=== PATIENT | female | born 1980 | race Caucasian/White ===

== ENCOUNTER 2022-04-10 12:52 | Outpatient (CLI) | payer OTHER, SELFPAY ==
[2022-04-10 13:35] LABS: Alanine Aminotransferase 16 U/L (6-35); Albumin Level 4.1 g/dL (3.5-5.1); Alkaline Phosphatase 72 U/L (38-126); Amylase 58 U/L (30-110); Aspartate Amino Transferase 20 U/L (14-36); Bilirubin,Total 0.2 mg/dL (0.2-1.3); Lipase 94 U/L (23-300)
== END 2022-04-10 12:53 | disposition home or self-care (01) ==
LOC: ANHSURGERY 12:56
PROVIDERS: PCP Internal Medicine Gastroenterology; Visit Provider Surgery
DX: Z01.818 Encounter for other preprocedural examination (principal); K80.20 Calculus of gallbladder without cholecystitis without obstruction
CPT/HCPCS: 36415; 80076; 82150; 83690; 86850; 86900; 86901

== ENCOUNTER 2022-04-13 00:03 | Day surgery (SDC) | payer OTHER, SELFPAY ==
[2022-04-09 15:10] VITALS: BMI 38.3
--- NOTE | 2022-04-09 15:19 | PC.NURSE ---
Report to the Outpatient Waiting Room, entrance under the green pavilion located off [facility], at time _1130_ on date _04-13-2022_. OR Time: __130pm_. - You and your visitor will be asked to self-screen and do not enter if you have any COVID symptoms. - Only one visitor and NO children visitors are allowed at this time. - The patient visitor is requested to leave or wait in car when not with patient due to restrictions. - A mask is required within the hospital. Patients may have clear liquids (water, carbonated beverages, clear teas, apple juice) until 3 hours prior to surgery with a maximum of 20 ounces. - No food from midnight until time of surgery Take the following medications with a SIP of water the morning of surgery: __Escitalopram Medications to discontinue per physician ___Fish oil Date to take last upaw__[id number] Please no make-up, nail kenyan, hairspray, perfume, deodorant, or body powder the day of surgery. No jewelry (including any body piercings) or valuables the day of surgery, leave them at home. Please take a shower or bath the night before, or the morning of, surgery with an antibacterial soap. Wear comfortable, loose fitting clothing. - Jewelry must be removed prior to entering the operating room. Rings and piercings that are not removed may be cut off. - The hospital will not accept responsibility for valuables. - Please leave all valuables, including medications, at home the day of surgery. If you are going home after surgery, a licensed street flusher driver must drive you home. - NO public transportation without another adult. - We recommend that an adult stay with you for 24 hours following discharge. - We also recommend that you do not drive, make important decision, drink alcoholic beverages, or take any drugs that were not prescribed by your health care provider for at least 24 hours after your discharge time. Follow any additional instructions given to you from your surgeon. If you or anyone in your household have experienced Covid symptoms in the past week, please notify your surgeon or the nurse liaison at the phone number below for possible testing. Telephone instructions given to __Patient___and asked if any additional questions and then verbalized understanding. Patient advised to call surgeon office or pre surgery nurse liaison [phone] if any additional questions.
[2022-04-13] VITALS (10 sets, daily range): BP systolic 107–135; BP diastolic 64–78; PULSE 61–93; RESP 12–18; TEMP 36.4–36.8; O2SAT 90–100
--- NOTE | 2022-04-13 10:48 | WPDHPUPDATE1 ---
History and Physical Update Update Date/Time: 04/13/22 10:48 History and Physical has been reviewed, including an updated exam of the patient. There are NO changes in the patient's condition. I have changed the procedure consent to Laparoscopic cholecystectomy, da Everton assisted, possible open. Otherwise assessment and plan unchanged. Risks, benefits, and alternatives have been discussed and questions answered. Patient agrees to proceed with procedure.
[2022-04-13] MEDS: LACTATED RINGERS 1,000 ML 30 ML IV CONT ×2 (11:30→13:57)
[2022-04-13] MEDS: KETOROLAC 15 MG/ML VIAL (*BKC) IV PUSH (11:30)
[2022-04-13] MEDS: ACETAMINOPHEN 500 MG TABLET 1000 MG PO (11:30)
--- NOTE | 2022-04-13 11:50 | SUR.PREOP ---
SPY AGENT GREEN (INDOCYANINE GREEN) 1.5 ML OF MIXED SOLUTION WAS GIVEN AT 1130 04/[address] WILCOX.
--- NOTE | 2022-04-13 12:12 | WPDANESEPPF ---
Anes - Initial Pre Proc Eval Procedure: Operation Date: 04/13/22 12:30 Proposed Procedures p Laparoscopic Cholecystectomy, Davinci Assisted - Cholo Chin DO Date/Time: 04/13/22 12:12 Surgeon: Cholo Chin DO Pre Op Diagnosis: symptomatic cholelithiasis Patient Data Age: 41 Gender: F Height: 1.65 m Weight: 106.5 kg Last Vital Signs Temp 36.8 C 04/13/22 11:46 Pulse 61 04/13/22 11:46 Resp 14 04/13/22 11:46 BP 117/73 04/13/22 11:46 Pulse Ox 100 04/13/22 11:46 O2 Del Method Room Air 04/13/22 11:46 Allergies Allergy/AdvReac Type Severity Reaction Status Date / Time No Known Allergies Allergy Verified 04/09/22 15:08 Home Medications Medication Instructions Recorded Confirmed Type cetirizine 10 mg tablet (Zyrtec) 10 mg PO DAILY 03/17/22 04/09/22 History escitalopram oxalate 10 mg tablet 10 mg PO DAILY 03/17/22 04/09/22 History (Lexapro) mecobalamin (vitamin B12) 1,000 1,000 mcg sublingual DAILY 03/17/22 04/09/22 History mcg disintegrating tablet,sublingual omega 6-zxw-hlz-fish oil 100 1 cap PO DAILY 03/17/22 04/09/22 History mg-160 mg-1,000 mg capsule (Fish Oil) omeprazole 20 mg capsule,delayed 20 mg PO DAILY 03/17/22 04/09/22 History release Patient hx anesthesia problems: none Family hx anesthesia problems: none Results Review: All pre-operative results and documents have been reviewed as part of the pre-operative evaluation. [facility] Past Medical History Medical History Helicobacter pylori (H. 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 Gender identity (if verbalized by the patient): Female Sexual Orientation (if Verbalized by the Patient): Straight or Heterosexual Spiritual care concerns: No Anes - Eval Final PreProcedure Day of Procedure 04/13/22 12:12 Patient weight: obese Heart: regular rate and rhythm Lungs: clear to auscultation and normal air movement Airway: Mallampati scale class II Neurological: alert and oriented Last oral intake: >/= 8 hours ASA classification: II Emergent: no Anesthetic plan: proceed Anesthesia type and monitoring: general ETT Results Review: All pre-operative results and documents have been reviewed as part of the pre-operative evaluation. Informed Consent: The patient's anesthetic plan and its attendant risks and benefits were discussed with the patient/family/POA. Questions were solicited and answers provided to the satisfaction of the patient/family/POA.
[2022-04-13] MEDS: ceFAZolin 2 GM/D5W 50 ML 2 GM/50 ML BAG IVPB (12:29)
--- NOTE | 2022-04-13 13:53 | W.PM.PROC2 ---
Procedure Note - Detailed Date of Procedure 04/13/22 Pre-op Diagnosis symptomatic cholelithiasis Post-op Diagnosis Same Procedure Performed Laparoscopic cholecystectomy, da Everton assisted Surgeon Cholo Chin, DO Anesthesia General and Local (0.5% bupivacaine) Indications This is a 41-year-old woman who presented with right upper quadrant pains intermittently over the last 4 months. She had a gallbladder ultrasound which showed evidence of cholelithiasis. Discussions were made with the patient about treatment options and decision was made to proceed with robotic assisted laparoscopic cholecystectomy, possible open. Findings Laparoscopic cholecystectomy was performed. The gallbladder was slightly dilated and contained multiple stones. The cystic duct appeared normal in size. No other intra-abdominal abnormalities were noted. The gallbladder was removed and sent to the lab for pathology. Description of Procedure Procedure as well as risks, benefits, and alternatives were discussed with the patient. Written consent was obtained and placed in chart prior to procedure. 1.5 mL of indocyanine green was given intravenously in preop. Patient was brought back to surgical suite. She was placed supine on operating table. Time-out was done to confirm patient and procedure. She was then intubated by the anesthesia department. Her abdomen was then prepped and draped in sterile fashion using chlorhexidine prep. 0.5% bupivacaine was infiltrated locally at the site of each port placement. An 8 mm incision was made just superior to the umbilicus and a 5 mm Optiview trocar was then advanced through the abdominal layers under direct visualization. Once inside the abdominal cavity, carbon dioxide insufflation was used to create a pneumoperitoneum. The camera was inserted and the abdomen was inspected. No mediated abnormalities were noted. The patient was placed in 10? reverse Trendelenburg position and rotated 10? to the left. Two 8 mm incisions were made in the right lateral abdomen and 2 8 mm trocars were inserted under direct visualization. A 12 mm incision was made in the left lateral abdomen and a 12 mm trocar was inserted under direct visualization. The 5 mm Optiview trocar was then removed and another 8 mm trocar was inserted in its place. The robotic arms were then brought up to the patient's bedside and secured to each port. The camera and instruments were inserted. I then moved over to the robotic consult to take control of the camera and instruments. The gallbladder was grasped at the fundus and retracted cephalad. The infundibulum of the gallbladder was then grasped and retracted laterally. Hook electrocautery was then used to carefully dissect around the neck of the gallbladder. The cystic duct was identified and a window was created around it using hook electrocautery. The cystic artery was also identified and a window was created behind it using hook electrocautery. Critical view of safety was identified visualizing the cystic duct running directly into the neck of the gallbladder and the cystic artery running directly into the wall the gallbladder. The camera view was switched to firefly mode and the indocyanine green within the gallbladder and cystic duct was clearly visualized. No other structures were noted running into this region and there did not appear to be any obstruction of the cystic duct impeding flow of bile into the gallbladder. The camera mode was switched back to regular mode. Hemo lock clips were placed on both the cystic duct and cystic artery. Two clips were placed proximally and 1 distally. Hook electrocautery was then used to transect in between the clips. Once safely away from the marisela hepatus, hook electrocautery was used to dissect the gallbladder off of the liver bed. Once the gallbladder was completely dissected free it was then placed in an Endo-Catch bag and removed through the 12 mm port site. The liver bed
[2022-04-13] MEDS: fentaNYL CITRATE INJ (*CRX) 100 MCG/2 ML VIAL 25 MCG IV PUSH (14:29)
[2022-04-13] MEDS: oxyCODONE HCL (*CRX) 5 MG TAB IR PO (15:28)
== END 2022-04-13 16:15 | disposition home or self-care (01) ==
PROVIDERS: PCP Internal Medicine Gastroenterology; Visit Provider Surgery
PROC: 0FT44ZZ Resection of Gallbladder, Percutaneous Endoscopic Approach (ICD-10-PCS; CPT 47562; principal; 2022-04-13 12:30)
DX: K80.10 Calculus of gallbladder with chronic cholecystitis without obstruction (principal); R11.2 Nausea with vomiting, unspecified; K59.00 Constipation, unspecified; R19.7 Diarrhea, unspecified; R10.9 Unspecified abdominal pain; K58.9 Irritable bowel syndrome, unspecified; E66.9 Obesity, unspecified; Z68.39 Body mass index [BMI] 39.0-39.9, adult
CPT/HCPCS: 47562; S2900; 36415; 80076; 82150; 83690; 86850; 86900; 86901; 88304; A9270; J0690; J1100; J1170; J1885; J2250; J2405; J2704; J2710; J3010; J7030; J7120

== ENCOUNTER → 2023-02-01 10:35 | Outpatient (CLI) | payer OTHER, SELFPAY ==
--- NOTE | ~2023-02-01 | US_ITS ---
EXAMINATION: US pelvic complete DATE: 02/01/2023 10:54 INDICATION: Menorrhagia Comparison:No prior studies for comparison. TECHNIQUE: Multiple transabdominal and endovaginal sonographic images of the pelvis performed. FINDINGS: The uterus measures 10 x 4.3 x 4.6 cm. The endometrial complex measures 9 mm. The right ovary measures 3.2 x 1.4 x 1.8 cm and the left ovary measures 2.2 x 1.4 x 1.9 cm. There ar e small follicles in each ovary. Normal doppler signal in both ovaries. There is no free fluid in the pelvis. There are no abnormal masses seen on either side. IMPRESSION: 1. Unremarkable pelvic ultrasound. Reviewed, dictated and finalized at location []
== END ==
PROVIDERS: PCP Internal Medicine Gastroenterology; Visit Provider Nurse Practitioner
DX: N92.0 Excessive and frequent menstruation with regular cycle (principal)
CPT/HCPCS: 76856

== ENCOUNTER 2023-03-01 02:27 | Day surgery (SDC) | payer OTHER, SELFPAY ==
[2023-02-18 14:15] VITALS: BMI 38.2
--- NOTE | 2023-02-18 14:20 | PC.NURSE ---
Report to the Outpatient Waiting Room, entrance under the green pavilion located off [facility], at time 0630 on date 03/01/23. Planned Procedure Time: 0830. Time changes happen often and if your time is changed the preop area will call you the afternoon before. - You and your visitor will be asked to self-screen and do not enter if you have any COVID symptoms. - A mask is optional within the hospital at this time. Patients may have clear liquids (water, carbonated beverages, clear teas, apple juice) until 3 hours prior to surgery with a maximum of 20 ounces. - No food from midnight until time of surgery Take the following medications with a SIP of water the morning of surgery: LEXAPRO DO NOT STOP ANY OF YOUR OTHER PRESCRIPTION MEDICATIONS PRIOR TO SURGERY ?EXCEPT THE FOLLOWING Medications to discontinue per physician: VITAMINS Date to take last dose: 02/25/23 Please no make-up, nail palestinian, hairspray, perfume, deodorant, or body powder the day of surgery. No jewelry (including any body piercings) or valuables the day of surgery, leave them at home. Please take a shower or bath the night before, or the morning of, surgery with an antibacterial soap. Wear comfortable, loose fitting clothing. - Jewelry must be removed prior to entering the operating room. Rings and piercings that are not removed may be cut off. - The hospital will not accept responsibility for valuables. - Please leave all valuables, including medications, at home the day of surgery. If you are going home after surgery, a licensed light truck driver must drive you home. - NO public transportation without another adult if you receive anesthesia. - We recommend that an adult stay with you for 24 hours following discharge. - We also recommend that you do not drive, make important decision, drink alcoholic beverages, or take any drugs that were not prescribed by your health care provider for at least 24 hours after your discharge time. Follow any additional instructions given to you from your surgeon. If you or anyone in your household have experienced Covid symptoms in the past week, please notify your surgeon or the nurse liaison at the phone number below for possible testing. Telephone instructions given to PT Jg ELENA and asked if any additional questions and then verbalized understanding. Patient advised to call surgeon office or pre surgery nurse liaison [phone] if any additional questions.
[2023-03-01 06:30] VITALS: BP 158/91; PULSE 76; RESP 16; TEMP 36.6; O2SAT 100
[2023-03-01] MEDS: ACETAMINOPHEN 500 MG TABLET 1000 MG PO (07:16)
--- NOTE | 2023-03-01 07:29 | WPDHPUPDATE1 ---
History and Physical Update Update Date/Time: 03/01/23 07:29 History and Physical has been reviewed, including an updated exam of the patient. There are NO changes in the patient's condition. Risks, benefits, and alternatives have been discussed and questions answered. Patient agrees to proceed with procedure.
--- NOTE | 2023-03-01 07:29 | PM.HPGS ---
History of Present Illness History of Present Illness Consent: Risks, benefits, and alternatives have been discussed and questions answered. Patient agrees to proceed with procedure. Chief complaint: menorrhagia Narrative: Vandana Almanza is a 42 year old female with heavy cycles resulting in anemia and a hemoglobin of 7. During her cycle she changes a super plus tampon every 2hours for 3 days with very large clots. She bleeds through her bed clothes at night during those days many times. Patient had an emergency room visit in November secondary to syncope. She had a colonoscopy which was normal. Her hemoglobin is up to 10.6 and pelvic ultrasound is normal. It was recommended to proceed with D&C hysteroscopy to further evaluate the endometrium. Risks of infection, bleeding, perforation, and possible pathology are discussed. Patient voices understanding and agrees to proceed. Review of Systems Constitutional: Constitutional: Reports night sweats PMFSH Past Medical History Medical History (Updated 03/01/23 @ 07:35 by Naya Sanz MD) Anxiety Helicobacter pylori (H. pylori) IBS (irritable bowel syndrome) Migraine (normal spontaneous vaginal delivery) Surgical History Surgical History (Updated 03/01/23 @ 07:34 by Naya Sanz MD) H/O gastric sleeve 2015 H/O: 2009 History of bilateral tubal ligation 2011 Hx of appendectomy open 1997 Family History Family History Father Malignant lymphoma, plasmacytoid Hypertension High cholesterol Social History Social History Social History: caffeine use- 1 cup of coffee per week Smoking status: Never smoker Alcohol intake: never Substance use: never Substance use type: does not use Living arrangements: with family Occupation/Education: occupation 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 Gender identity (if verbalized by the patient): Female Sexual Orientation (if Verbalized by the Patient): Straight or Heterosexual Spiritual care concerns: No Meds Home Medications and Allergies Home Medications Medication Instructions Recorded Confirmed Type cetirizine 10 mg tablet (Zyrtec) 10 mg PO DAILY 03/17/22 02/18/23 History escitalopram oxalate 10 mg tablet 10 mg PO DAILY 03/17/22 02/18/23 History (Lexapro) mecobalamin (vitamin B12) 1,000 1,000 mcg sublingual DAILY 03/17/22 03/01/23 History mcg disintegrating tablet,sublingual omeprazole 20 mg capsule,delayed 20 mg PO DAILY 03/17/22 02/18/23 History release ferrous sulfate 325 mg (65 mg 325 mg PO BID 02/18/23 03/01/23 History iron) tablet (Iron (ferrous sulfate)) Allergies Allergy/AdvReac Type Severity Reaction Status Date / Time No Known Allergies Allergy Verified 03/01/23 07:23 Exam Const: General: healthy appearing and alert Orientation/consciousness: patient oriented x3 Resp: Effort & Inspection: normal respiratory effort Auscultation: clear to auscultation bilaterally Cardio: Rate: regular rate Rhythm: regular rhythm GI: GI Palp: Yes Soft to palpation, No Tenderness to palpation present (GI) and No Palpable mass present : External Female Exam: normal external appearance Speculum Exam - Vagina: normal appearance of the vagina and normal vaginal discharge Speculum Exam - Cervix: normal appearance of the cervix Bimanual exam- vagina & uterus: uterine size normal and consistency normal Bimanual Exam- Adnexa, other: normal adnexae and No adnexal tenderness Neuro: General: patient oriented x3 Assessment and Plan Assessment and plan (1) Menorrhagia: Code(s): N92.0 - Excessive and frequent menstruation with regular cycle Status: Acute Assessment and Plan: plan to proceed with D&C hysteroscopy
--- NOTE | 2023-03-01 08:22 | WPDANESEPPF ---
Anes - Initial Pre Proc Eval Procedure: Operation Date: 03/01/23 08:30 Proposed Procedures p Hysteroscopy Dilation and Curettage, with Endocervical Curettage - Naya Sanz MD Date/Time: 03/01/23 08:22 Surgeon: Naya Sanz MD Pre Op Diagnosis: menorrhagia Patient Data Age: 42 Gender: F Height: 1.65 m Weight: 104.35 kg Last Vital Signs Temp 36.6 C 03/01/23 06:30 Pulse 76 03/01/23 06:30 Resp 16 03/01/23 06:30 BP 158/91 H 03/01/23 06:30 Pulse Ox 100 03/01/23 06:30 O2 Del Method Room Air 03/01/23 06:30 Allergies Allergy/AdvReac Type Severity Reaction Status Date / Time No Known Allergies Allergy Verified 03/01/23 07:23 Home Medications Medication Instructions Recorded Confirmed Type cetirizine 10 mg tablet (Zyrtec) 10 mg PO DAILY 03/17/22 02/18/23 History escitalopram oxalate 10 mg tablet 10 mg PO DAILY 03/17/22 02/18/23 History (Lexapro) mecobalamin (vitamin B12) 1,000 1,000 mcg sublingual DAILY 03/17/22 03/01/23 History mcg disintegrating tablet,sublingual omeprazole 20 mg capsule,delayed 20 mg PO DAILY 03/17/22 02/18/23 History release ferrous sulfate 325 mg (65 mg 325 mg PO BID 02/18/23 03/01/23 History iron) tablet (Iron (ferrous sulfate)) Patient hx anesthesia problems: none Family hx anesthesia problems: none Results Review: All pre-operative results and documents have been reviewed as part of the pre-operative evaluation. [facility] Past Medical History Medical History Anxiety Helicobacter pylori (H. 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 Gender identity (if verbalized by the patient): Female Sexual Orientation (if Verbalized by the Patient): Straight or Heterosexual Spiritual care concerns: No Anes - Eval Final PreProcedure Day of Procedure 03/01/23 08:22 Patient weight: obese Heart: regular rate and rhythm Lungs: clear to auscultation Airway: Mallampati scale class II Neurological: alert and oriented Last oral intake: >/= 8 hours ASA classification: II Emergent: no Anesthetic plan: proceed Anesthesia type and monitoring: general GIVS and standard monitoring Results Review: All pre-operative results and documents have been reviewed as part of the pre-operative evaluation. Informed Consent: The patient's anesthetic plan and its attendant risks and benefits were discussed with the patient/family/POA. Questions were solicited and answers provided to the satisfaction of the patient/family/POA.
--- NOTE | 2023-03-01 09:04 | W.PM.PROC2 ---
Procedure Note - Detailed Date of Procedure 03/01/23 Pre-op Diagnosis menorrhagia Post-op Diagnosis Same Procedure Performed D&C hysteroscopy with ECC Surgeon Naya Sanz MD Anesthesia MAC Findings uterus sounds to 8cm and appears grossly normal Description of Procedure The patient is taken to the operating room and placed under anesthesia in the dorsal lithotomy position. She was prepped and draped in usual sterile fashion. [place] speculum was placed in the vagina and the cervix grasped on the anterior lip with a tenaculum. The uterus is sounded to 8cm. The hysteroscope was placed and with no abnormalities noted it is removed. The Kevorkian curette is used to perform an endocervical curetting. Endocervical brush was used to collect the specimen and is sent with the scrapings. The 00 sharp curette was used to curette the endometrium until a good uterine cry was noted in all areas. All instruments were then removed. The patient is awakened from anesthesia and taken to recovery in stable condition. Sponge, needle, and instrument counts are correct per the OR staff. Estimated Blood Loss 5 Drains No Packing No Pathology Yes ( Endometrial and endocervical curettings) Complications No immediate complications Condition Stable Disposition PACU
[2023-03-01 09:09] VITALS: BP 120/73; PULSE 83; RESP 14; O2SAT 98
[2023-03-01] MEDS: LACTATED RINGERS 1,000 ML 30 ML IV CONT (09:09)
[2023-03-01 09:30] VITALS: BP 118/73; PULSE 80; RESP 14
[2023-03-01 10:00] VITALS: BP 122/70; PULSE 68; RESP 20
[2023-03-01 10:15] VITALS: BP 117/68; PULSE 64; RESP 20
== END 2023-03-01 10:20 | disposition home or self-care (01) ==
PROVIDERS: PCP Internal Medicine Gastroenterology; Visit Provider Obstetrics & Gynecology Gynecology
PROC: 0U5B8ZZ Destruction of Endometrium, Via Natural or Artificial Opening Endoscopic (ICD-10-PCS; CPT 58563; principal; 2023-03-01 08:30)
DX: N92.0 Excessive and frequent menstruation with regular cycle (principal); F41.9 Anxiety disorder, unspecified; Z98.84 Bariatric surgery status
CPT/HCPCS: 58558; 88305; A9270; J2250; J2405; J2704; J3010; J7120

== ENCOUNTER → 2023-04-22 13:41 | Outpatient (CLI) | payer OTHER, SELFPAY ==
--- NOTE | ~2023-04-22 | MM_ITS ---
EXAMINATION: MM screening brandin BI w randolph HISTORY: Screening mammogram; baseline examination TECHNIQUE: Craniocaudal and mediolateral oblique 3-D tomosynthesis images were obtained and synthetic 2-D images were generated. CAD analysis was submitted and interpreted. COMPARISON: No prior mammogram is available for comparison at this institution. BREAST PARENCHYMAL COMPOSITION: There are scattered areas of fibroglandular density. FINDINGS: There is no evidence of suspicious mass, calcification, or architectural distortion to sugg est malignancy in either breast. IMPRESSION: 1. No mammographic evidence of malignancy. 2. Recommend routine screening mammography in one year. BI-RADS Category 1: Negative Reviewed, dictated and finalized at location A.
== END ==
PROVIDERS: PCP Obstetrics & Gynecology Gynecology; Visit Provider Obstetrics & Gynecology Gynecology
DX: Z12.31 Encounter for screening mammogram for malignant neoplasm of breast (principal)
CPT/HCPCS: 77063; 77067

== ENCOUNTER 2024-02-12 10:36 | Outpatient (CLI) | payer OTHER, SELFPAY ==
--- NOTE | ~2024-02-12 | US_ITS ---
EXAMINATION: US transvaginal DATE: 02/12/2024 11:07 INDICATION: Intrauterine device displacement. TECHNIQUE: Multiple transvaginal sonographic images of the pelvis were obtained. COMPARISON: Ultrasound 02/01/2023 FINDINGS: The uterus measures 9.9 x 5.1 x 5.3 cm. There is a 6 mm cyst in the area of the section scar in the lower uterine segment. There is no free fluid in the pelvis. The endometrial complex measures 5 mm in thickness. There is an intrauterine device in expected position. The right ovary is not visu alized. The left ovary measures 2.6 x 1.3 x 2.0 cm. IMPRESSION: 1. Intrauterine device in expected position. Reviewed, dictated and finalized at location E.
== END 2024-02-12 10:37 ==
LOC: MICIMG 10:36
PROVIDERS: PCP Obstetrics & Gynecology Gynecology; Visit Provider Nurse Practitioner Women's Health
DX: T83.32XA Displacement of intrauterine contraceptive device, initial encounter (principal); Y83.8 Other surgical procedures as the cause of abnormal reaction of the patient, or of later complication, without mention of misadventure at the time of the procedure
CPT/HCPCS: 76830

== ENCOUNTER 2024-06-30 14:42 | Outpatient (CLI) | payer OTHER, SELFPAY ==
--- NOTE | ~2024-06-30 | MM_ITS ---
EXAMINATION: MM screening brandin BI w randolph HISTORY: Screening mammogram TECHNIQUE: Craniocaudal and mediolateral oblique 3-D tomosynthesis images were obtained and synthetic 2-D images were generated. CAD analysis was submitted and interpreted. COMPARISON: 04/22/2023 BREAST PARENCHYMAL COMPOSITION:Not Dense. There are scattered areas of fibroglandular density. FINDINGS: No suspicious mass, calcification, or architectural distortion are identified in either yamileth ast to suggest malignancy. There has been no suspicious interval change. IMPRESSION: No mammographic evidence of malignancy. Recommend routine screening mammography in one year. BI-RADS Category 1: Negative Reviewed, dictated and finalized at location . [employer]ER
== END 2024-06-30 14:43 | disposition home or self-care (01) ==
LOC: MICIMG 14:43
PROVIDERS: PCP Obstetrics & Gynecology Gynecology; Visit Provider Nurse Practitioner Women's Health
DX: Z12.31 Encounter for screening mammogram for malignant neoplasm of breast (principal)
CPT/HCPCS: 77063; 77067

== ENCOUNTER 2025-07-02 15:33 | Outpatient (CLI) | payer OTHER, SELFPAY ==
--- NOTE | ~2025-07-02 | MM_ITS ---
EXAMINATION: MM screening brandin BI w randolph HISTORY: Screening TECHNIQUE: Craniocaudal and mediolateral oblique 3-D tomosynthesis images were obtained and synthetic 2-D images were generated. CAD analysis was submitted and interpreted. COMPARISON: Comparison to multiple prior studies sequentially, with oldest reviewed study dated , 04/22/2023 BREAST PARENCHYMAL COMPOSITION: Not Dense: There are scattered areas of fibroglandular density. FINDINGS: There is no evidence of suspicious mass, calcification, or architectural distortion to suggest malignancy in either breast. IMPRESSION: 1. No mammographic evidence of malignancy. 2. Recommend routine screening mammography in one year. BI-RADS Category 1: Negative Reviewed, dictated and finalized at location B. CH OFFICER
== END 2025-07-02 15:34 | disposition home or self-care (01) ==
LOC: MICIMG 15:34
PROVIDERS: PCP Obstetrics & Gynecology Gynecology; Visit Provider Obstetrics & Gynecology Gynecology
DX: Z12.31 Encounter for screening mammogram for malignant neoplasm of breast (principal)
CPT/HCPCS: 77063; 77067

== ENCOUNTER 2025-07-04 13:05 | Outpatient (CLI) | payer OTHER, SELFPAY ==
--- NOTE | 2025-07-04 13:19 | ECHO_ITS ---
Patient Info Name: Vandana Almanza Age: 44 years : 1980 Gender: Female Ht: 65 in Wt: 194 lbs BSA: 2.04 m2 HR: 62 bpm BP: 105 / 75 mmHg Heart Rhythm: Sinus Rhythm Technical Quality: Good Exam Date: 07/04/2025 1:20 PM Patient Status: O Admit Date: 07/04/2025 Exam Type: CA echo doppler color flow Complete two-dimensional, color flow and Doppler transthoracic echocardiogram is performed. Composition Tile Layer: Jovita Jaimes Attending Provider: Giovanny Childers Summary 1. Complete two-dimensional, color flow and Doppler transthoracic echocardiogram is performed. 2. Left ventricular chamber dimension is normal. 3. Left ventricular systolic function is normal, estimated at 60-65. 4. The left ventricular diastolic function is normal. 5. E/e' 6 is not elevated. 6. Left atrial chamber dimension is mildly enlarged. 7. There is trace tricuspid valve regurgitation. 8. No pulmonary hypertension, estimated pulmonary arterial systolic pressure is 26 mmHg. 9. There is trace pulmonic regurgitation. Left Ventricle E/e' 6 is not elevated. Left ventricular chamber dimension is normal. Left ventricular systolic function is normal, estimated at 60-65. The left ventricular diastolic function is normal. Right Ventricle Right ventricular chamber dimension is normal. Right ventricular systolic function is normal and with normal TAPSE 2.3 cm. Left Atria Left atrial chamber dimension is mildly enlarged. Right Atria Right atrial chamber dimension is normal. Aortic Valve The aortic valve is trileaflet. There is no aortic valve stenosis. There is no aortic valve regurgitation. Pulmonic Valve There is trace pulmonic regurgitation. Mitral Valve There is no mitral valve stenosis. There is no mitral valve regurgitation. Tricuspid Valve There is trace tricuspid valve regurgitation. No pulmonary hypertension, estimated pulmonary arterial systolic pressure is 26 mmHg. Pericardium/Pleural There is no pericardial effusion. Inferior Vena Cava Normal inferior vena cava with >50% collapse upon inspiration consistent with normal right atrial pressure, 5 mmHg. Aorta The aortic root size at the sinus of Valsalva is normal. Left Ventricular Outflow Tract Name Value Normal LVOT 2D LVOT Diameter 2.0 cm LVOT Doppler LVOT Peak Velocity 100 cm/s LVOT Peak Gradient 4 mmHg LVOT Mean Gradient 2 mmHg LVOT VTI 20 cm LVOT VTI/AV VTI Ratio 0.9 LVOT Stroke Volume 60 ml LVOT CO 3.6 l/min LVOT CI 1.7 l/min/m2 Pulmonic Valve Name Value Normal RVOT Doppler RVOT Peak Velocity 70 cm/s RVOT Peak Gradient 2 mmHg PV Doppler PV Peak Velocity 88 cm/s PV Peak Gradient 3 mmHg Mitral Valve Name Value Normal MV Diastolic Function MV E Peak Velocity 82 cm/s MV A Peak Velocity 66 cm/s MV E/A 1.2 MV Decel Time (PW) 174 ms MV Annular TDI MV E/e' (Septal) 7.1 MV E/e' (Lateral) 5.7 MV E/e' (Average) 6.4 Tricuspid Valve Name Value Normal TV Regurgitation Doppler TR Peak Velocity 227 cm/s TR Peak Gradient 17 mmHg Estimated PAP/RSVP RA Pressure 5 mmHg <=5 PA Systolic Pressure 26 mmHg <36 RV Systolic Pressure 26 mmHg <36 TV Annular TDI TV Lateral Magy s' Velocity 13.4 cm/s >=9.5 Aorta Name Value Normal Ascending Aorta Ao Root Diameter (MM) 3.2 cm Ao Root Diam Index (MM) 1.6 cm/m2 Aortic Valve Name Value Normal AV Doppler AV Peak Velocity 117 cm/s AV Peak Gradient 6 mmHg AV Mean Gradient 2 mmHg AV VTI 22 cm AV Area (Cont Eq VTI) 2.7 cm2 >=3.0 AV Area (Cont Eq Nikolas) 2.6 cm2 AV DI (Nikolas) 0.85 AV Regurgitation 2D LVOT Area 3.0 cm2 Ventricles Name Value Normal LV Dimensions 2D/MM IVS Diastolic Thickness (2D) 0.7 cm 0.6-1.0 LVID Diastole (2D) 4.8 cm 3.8-5.2 LVIW Diastolic Thickness (2D) 0.7 cm 0.6-0.9 LVID Systole (2D) 2.7 cm 2.2-3.5 LVOT Diameter 2.0 cm LV Mass (2D Cubed) 105.77 g 67.00-162.00 LV Mass Index (2D Cubed) 52 g/m2 43-95 Relative Wall Thickness (2D) 0.30 <=0.42 LV Fractional Shortening/Ejection Fraction 2D/MM LV Fractional Shortening (2D) 44 % 27-45 LV EF (2D Teichholz) 75 % LV Diastolic Volume (4C MOD) 60 ml LV EF (4C MOD) 70 % LV Diastolic Volume (2C MOD) 70 ml LV EF (2C MOD) 69 % LV Diastolic Volume (BP MOD) 66 ml 46-106 LV Diastolic Volume Index (BP MOD) 32 ml/m2 29-61 LV Systolic Volume (BP MOD) 21 ml 14-42 LV Systolic Volume Index (BP MOD) 10 ml/m2 8-24 LV EF (BP MOD) 68 % 54-74 LV Diastolic Length (4C) 8.2 cm LV Systolic Length (4C) 5.9 cm LV Stroke Volume (4C MOD) 42 ml Atria Name Value Normal LA Dimensions LA Dimension (MM) 3.9 cm 2.7-3.8 LA Volume (4C A-L) 76 ml LA Volume (BP A-L) 66 ml RA Dimensions RA Area (4C) 15.8 cm2 <=18.0 Report Signatures
--- NOTE | 2025-07-04 14:01 | ECG_ITS ---
Test Date: 2025-07-04 14:05:49 Measurements Intervals [place] Rate: 58 P: 25 NV: 154 QRS: 49 QRSD: 90 T: 31 QT: 438 QTc: 430 Interpretive Statements SINUS BRADYCARDIA OTHERWISE NORMAL ECG No previous ECG available for comparison Electronically Signed On 07-04-2025 17:18:43 RIGGER UP by Ramirez John M.D.
--- OUTSIDE RECORDS SUMMARY | 2025-07-04 19:11 | XMS_ITS | Clinical Summary ---
Author Organization [facility] Address [facility] [place] [address] Care Team Providers Care Community Center Worker Name Role Phone Pool Childers MD Primary Care Provider Encounters Date Type Department Care Team Description 06/14/2025 4:01 PM CDT - 06/14/2025 11:59 PM CDT Hospital Encounter [facility] [address] [facility] [address] [address] Pool Childers MD Discharge Disposition: Home or Self Care (Routine Discharge) 06/14/2025 Travel from Last 3 Months Social History Tobacco Use Types Packs/Day Years Used Date Smoking Tobacco: Never Assessed Comments Unknown Sex and Gender Information Value Date Recorded Sex Assigned at Female 06/14/2025 3:56 PM CDT Legal Sex Female 3:56 PM CDT Gender Identity Not on file Sexual Orientation Not on file Plan of Treatment Health Maintenance Due Date Last Done Comments Cervical Cancer Screening Pap Smear (Age 30 to 64) Every 3 Years 1978 Colorectal Cancer Screening Colonoscopy (10 Years) 1978 Annual Physical 1981 Hepatitis C 1996 DTaP, Tdap and Td Vaccines (1 - Tdap) 1997 Hepatitis B Vaccines (1 of 3 - 19+ 3-dose series) 1997 Cervical Cancer Screening Pap with HPV Testing (Age 30 to 64) Every 5 Years 2008 Cervical Cancer Screening with HPV 2008 Mammogram Screening 2018 COVID-19 Vaccine ( season) 2025 07/09/2024, 05/30/2021, 05/30/2021, Additional history exists Influenza Adult Completed 06/09/2025, 06/17, 08/11/2023 Hepatitis A Vaccines Aged Out No long er eligible based on patient's age to complete this topic Meningococcal B Vaccine Aged Out No l onger eligible based on patient's age to complete this topic Meningococcal Vaccine Aged Out No che jayashree eligible based on patient's age to complete this topic Pneumococcal Vaccine: Pediatrics (0 to 5 Years) and At-Risk Patients (6 to 49 Years) Aged Out No longer eligible based on patient's age to complete this topic RSV Immunizations Under 20 Months Aged Out No longer eligible based on patient's age to complete this topic Procedures Procedure Name Priority Date/Time Associated Diagnosis Comments CT HEART SCREEN CALCIUM SCORE PROMO Routine 06/14/2025 4:19 PM CDT Encounter for screening for cardiovascular disorders from Last 3 Months Results * CT HEART SCREEN CALCIUM SCORE PROMO (06/14/2025 4:19 PM CDT) Anatomical Region Laterality Modality Chest Computed Tomogra phy 06/15/2025 6:57 AM CDT Impressions 06/15/2025 6:57 AM CDT =====IMPRESSION:===== Total Score: 0 No plaque, very low risk, very unlikely for probability of significant CAD Ordered By: POOL CHILDERS Interpreted By: Moose Bernard MD, 06/15/2025 6:57 AM Narrative 06/15/2025 6:57 AM CDT [address] [address] EXAMINATION: Multislice Helical CT Coronary Calcium Scoring REASON FOR EXAM: Screening for heart disease COMPARISON: None TECHNIQUE: Multislice helical CT images of the proximal coronary arteries with a computer generated calcification score. A dose lowering technique was used for this procedure, which may include, but is not limited to, dose reduction technique, automated exposure control, iterative reconstruction, ALARA (As Low As Reasonably Achievable), or Image Gently techniques. Results: Left main: 0 LAD: 0 Circumflex: 0 Right coronary: 0 Total Score: 0 Comments: There is no mediastinal adenopathy, and there are no pulmonary nodules in the visualized portions of the chest. Calcium score guidelines: Total Score* Calcium Plaque [place] *Risk *Probability of significant CAD 0 No Plaque Very Low Very unlikely 1-10 Minimal Plaque Low Unlikely 11-100 Mild Plaque Moderate Low likelihood of significant stenosis <50% 101-400 Moderate Plaque Moderately High Moderate likelihood of significant stenosis (>50%) Over 400 Extensive Plaque High High likelihood of significant stenosis (>50%) The amount of coronary artery calcification correlates with the severity of coronary atherosclerosis and the probability of future significant event. Calcification is not site specific for stenosis and does not identify non-calcified atherosclerotic plaque, but rather indicates the extent of atherosclerosis in the coronary arteries overall. The score may be used as an indicator for risk factor modification or additional cardiac testing. Significant change in calcium score over time may be indicative of subsequent disease development or useful as a benchmark to assess preventative programs. Procedure Note Moose Bernard MD - 06/15/[address] [address] EXAMINATION: Multislice Helical CT Coronary Calcium Scoring REASON FOR EXAM: Screening for heart disease COMPARISON: None TECHNIQUE: Multislice helical CT images of the proximal coronary arterieswith a computer generated calcification score. A dose lowering techniquewas used for this procedure, which may include, but is not limited to,dose reduction technique, automated exposure control, iterativereconstruction, ALARA (As Low As Reasonably Achievable), or Image Gentlytechniques. Results: Left main: 0 LAD: 0 Circumflex: 0 Right coronary: 0 Total Score: 0 Comments: There is no mediastinal adenopathy, and there are no pulmonarynodules in the visualized portions of the chest. Calcium score guidelines: Total Score* Calcium Plaque [place] *Risk *Probability ofsignificant CAD 0 No Plaque Very LowVery unlikely 1-10 Minimal Plaque LowUnlikely 11-100 Mild Plaque ModerateLow likelihood of significant stenosis <50% 101-400 Moderate Plaque Moderately HighModerate likelihood of significant stenosis (>50%) Over 400 Extensive Plaque HighHigh likelihood of significant stenosis (>50%) The amount of coronary artery calcification correlates with the severityof coronary atherosclerosis and the probability of future significantevent. Calcification is not site specific for stenosis and does notidentify non-calcified atherosclerotic plaque, but rather indicates theextent of atherosclerosis in the coronary arteries overall. The score may be used as an indicator for risk factor modification oradditional cardiac testing. Significant change in calcium score over timemay be indicative of subsequent disease development or useful as abenchmark to assess preventative programs. =====IMPRESSION:===== Total Score: 0 No plaque, very low risk, very unlikely for probability ofsignificant CAD Ordered By: POOL CHILDERS Interpreted By: Moose Bernard MD, 06/15/2025 6:57 AM us Pool Childers MD CT Final Resul t from Last 3 Months Insurance [facility] Care Teams Community Center Worker Relationship Specialty Start Date End Date Pool Childers MD [address] [place] [address] [address] [place] [address] PCP - General FAMILY PRACTICE 06/14/25
--- OUTSIDE RECORDS SUMMARY | 2025-07-04 19:11 | XMS_ITS | Clinical Summary ---
Author Organization [facility] Address [facility] [address] Care Team Providers Care Tariff Counsel Name Role Phone Dea Schaffer MD Primary Care Provider [phone] Lowell Bassett MD Unavailable [phone] Allergies No known active allergies Medications cetirizine (ZyrTEC) 10 mg tablet Take 1 tablet (10 mg total) by mouth daily 3 Active ergocalciferol (VITAMIN D) 50,000 unit capsule Take 1 capsule (50,000 Units total) by mouth 3 Active escitalopram (LEXAPRO) 10 mg tablet Take 1 tablet (10 mg total) by mouth daily 3 Active FeroSuL 325 mg (65 mg iron) tablet Take 1 tablet (325 mg total) by mouth 2 (two) times a day 3 Active omeprazole (PriLOSEC) 20 mg capsule Take 1 capsule (20 mg total) by mouth daily 3 Active wj-df-tlva-FA-C a carb-vit K 18 mg iron-400 mcg-500 mg tablet Take 1 tablet by mouth daily Active cyanocobalamin (Vitamin B-12) 250 mcg tablet Take 1 tablet (250 mcg total) by mouth daily Active cyclobenzaprine (FLEXERIL) 10 mg tablet Take 1 tablet (10 mg total) by mouth 3 (three) times a day as needed 3 Active amoxicillin (AMOXIL) 500 mg tablet/capsule Take four capsules one hour prior to any dental procedure 12 tablet/capsul e 01/07/202 5 Active Active Problems Problem Noted Date Diagnosed Date Status post total replacement of left hip 2023 Primary osteoarthritis of left hip 07/12/2023 Arthralgia of hip 09/12/2015 Cephalalgia 05/05/2012 Immunizations Immunization Administration Dates Next Due Influenza, Quadrivalent, Spl it, Preservative Free, Intramuscular 08/11/2023 Surgical History Surgery Date Site/Laterality Comments BARIATRIC SURGERY 07/30/2016 gastric sleeve SECTION 1 FL FLUORO GUIDED INJECTION HIP LEFT 04/29/2023 Left CHOLECYSTECTOMY 03/16/2021 - 04/15/2021 robotic laparascopic VAGINAL DELIVERY three JOINT REPLACEMENT 08/10/2023 Left total hip Medical History Medical History Date Comments Anemia take iron supple ments- contributed syncopal event in November 2022 to anemia/ related to heavy periods- IUD placed Apr 2023 Migraines 1-2/month, impro simi Obesity Gastric reflux Osteoarthritis Motion sickness just in car GERD (gastroesophageal reflux disease) Syncope 11/2022 single event- ED visit- anemia noted- hgb and Iron low, neuro work up negative- pt states father had hx of anemia/stroke postop Last menstrual period (LMP) > 10 days ago 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 No 08/11/2023 Social Connection and Isolation Panel Answer Date Recorded In a typical week, how many times do you talk on the phone with family, friends, or neighbors? More than three times a week 08/11/2023 How often do you get togethe r with friends or relatives? More than three times a week 08/11/2023 How often do you attend chur or mormonism services? Never 08/11/2023 Do you belong to any clubs o r organizations such as scientology groups, unions, fraternal or athletic groups, or school groups? No 08/11/2023 How often do you attend meet ings of the clubs or organizations you belong to? Never 08/11/2023 Are you , , di vorced, , never , or living with a partner? 08/11/2023 AUDIT-C Answer Date Recorded Q1: How often do you have a drink containing alc ohol? Never 08/10/2023 Average Number of Drinks Not on file 023 Frequency of Binge Drinking Not on file 07/17 Overall Financial Resource Strain (CARDIA) Answe r Date Recorded How hard is it for you to pa y for the very basics like food, housing, medical care, and heating? Not hard at all 08/11/2023 Hunger Vital Sign Answer Date Recorded Within the past 12 months, y ou worried that your food would run out before you got the money to buy more. Never true 08/11/20 23 Within the past 12 months, t he food you bought just didn't last and you didn't have money to get more. Never true 08/11/2023 PRAPARE - Transportation Answer Date Re corded In the past 12 months, has l ack of transportation kept you from medical appointments or from getting medications? No 07/17 In the past 12 months, has l ack of transportation kept you from meetings, work, or from getting things needed for daily living? No 08/11/2023 Housing Stability Vital Sign Answer Dmitriy e Recorded In the last 12 months, was t here a time when you were not able to pay the mortgage or rent on time? No 08/11/2023 In the last 12 months, how many places have you lived? 1 08/11/2023 In the last 12 months, was t here a time when you did not have a steady place to sleep or slept in a care home (including now)? No 08/11/2023 Personal Safety Answer Date Recorded Have you ever been in or are you currently in a harmful physical or emotional relationship or is someone making you feel afraid or unsafe? 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 Not on file Not on file Last Filed Vital Signs Vital Sign Reading Time Taken Comments Blood Pressure 113/71 08/11/2023 7:22 AM CELL STRIPPER Pulse 79 08/11/2023 7:22 AM CELL STRIPPER Temperature 36.9 C (98.4 F) 08/11/2023 7:22 AM CELL STRIPPER Respiratory Rate 16 08/11/2023 7:22 AM CELL STRIPPER Oxygen Saturation 100% 08/11/2023 7:22 AM CELL STRIPPER Inhaled Oxygen Concentration - - Weight 104.3 kg (230 lb) 08/22/2024 11:40 AM CELL STRIPPER Height 167.6 cm (5' 6) 08/22/2024 11:40 AM CELL STRIPPER Body Mass Index 37.12 08/22/2024 11:40 AM CELL STRIPPER Plan of Treatment Health Maintenance Due Date Last Done Comments Breast Cancer Screening-Mammogram 1980 Cervical Cancer Screening 1978 Colon Cancer Screening-Colonoscopy 1978 Depression Screening 1978 Hepatitis C Screening 1978 DTaP/Tdap/Td Vaccine (1 - Tdap) 1989 Hepatitis B Screening 1996 Regular Well Visit/Exam 18-64 1996 Covid-19 Vaccine (4 - 2024-2 6 season) 2025 05/30/2021, 10/04/2020, 09/06/2020 Influenza Vaccine (#1) 2025 08/11/2023 HPV Vaccines Aged Out No longer eligi ble based on patient's age to complete this topic Pneumococcal vaccine <65 Aged Out No longer eligible based on patient's age to complete this topic Medical Devices Implanted Type Area Calendar Control Clerk Blood Bank Device Identifier Shelf Expiration Date Model / Serial / Lot [employer]/ Ortho Reflection R3 Thread Acetabulum Cover Hole [id number] - [id number] Implanted:Qty: 1 on 08/10/2023 by Lowell Bassett MD at [facility] Left: Hip [employer]/Or tho [id number] 04/30/2033 [id number] / / [id number] [employer]/ Ortho R3 52mm 36mm Hip 20d Liner Acetabular Xlpe Poly Sterile [id number] - [id number] Implanted:Qty: 1 on 08/10/2023 by Lowell Bassett MD at [facility] Left: Hip [employer]/Or tho [id number] 02/20/2033 [id number] / / [id number] [employer]/ Ortho Synergy 10mm [id number] Cementless Hip 131d 10 Standard Offset [id number] - [id number] Implanted:Qty: 1 on 08/10/2023 by Lowell Bassett MD at [facility] Left: Hip [employer]/Or tho [id number] 10/02/2032 [id number] / / [id number] [employer]/ Ortho Reflection R3 Contour 6.5mm 25mm Spherical Head Hip Acetabular [id number] - [id number] Implanted:Qty: 1 on 08/10/2023 by Lowell Bassett MD at [facility] Left: Hip [employer]/Or tho [id number] 03/16/2033 [id number] / / [id number] [employer]/ Ortho R3 52mm 3 Hole Hip Standard Shell Acetabular Poly [id number] - [id number] Implanted:Qty: 1 on 08/10/2023 by Lowell Bassett MD at [facility] Left: Hip [employer]/Or tho [id number] 04/19/2033 [id number] / / [id number] [employer]/ Ortho 36mm Hip +0mm 07/29 Head Femoral Oxinium [id number] - [id number] Implanted:Qty: 1 on 08/10/2023 by Lowell Bassett MD at [facility] Left: Hip [employer]/Or tho [id number] 04/10/2033 [id number] / / [id number] Insurance [facility] PLUS [facility] PLUS Advance Directives For more information, please contact: [phone] * Full Code (Latest Code Status on File) Date Activated Date Inactivated Comments 08/10/2023 2:05 PM 08/11/2023 3:37 PM Care Teams Tariff Counsel Relationship Specialty [place] [id number] [address] PCP - General Gastroenterology 04/12/23 Lowell Bassett MD [id number] [address] Consulting Physician Orthopedic Surgery 08/11/23
--- OUTSIDE RECORDS SUMMARY | 2025-07-04 19:11 | XMS_ITS | Encounter Summary ---
Author Organization [facility] Address [address] [place] [address] Care Team Providers Care High Voltage Electrician Name Role Phone Dea Schaffer MD Primary Care Provider [phone] Encounter Details Date Type Department Care Team (Late st Contact Info) Description 04/07/2012 [facility] [place] [id number] [address] Social History Tobacco Use Types Packs/Day Years Used Date Smoking Tobacco: Never Assessed Comments Unknown Sex and Gender Information Value Date Recorded Sex Assigned at Not on file Legal Sex Female 1:36 PM JAVA SYBASE DEVELOPER Gender Identity Not on file Sexual Orientation Not on file documented as of this encounter Plan of Treatment Not on file documented as of this encounter Visit Diagnoses Not on filedocumented in this encounter Care Teams High Voltage Electrician Relationship Specialty Start Date End Date Dea Schaffer MD [address] [place] [address] PCP - General 04/14/22 documented as of this encounter
--- OUTSIDE RECORDS SUMMARY | 2025-07-04 19:11 | XMS_ITS | Clinical Summary ---
Author Organization [facility] Address [address] [place] [address] Care Team Providers Care Embedded Linux Engineer Name Role Phone Dea Schaffer MD Primary Care Provider [phone] Source Comments [facility] and Associated Physician Practices is amultiple site organization consisting of ambulatory clinics and hospital sitesin [place], [place], [place] and [place]. This disclosure is being madepursuant to the Care Everywhere program and may not contain all information available regarding this patient. Last updated 18.[facility] Social History Tobacco Use Types Packs/Day Years Used Date Smoking Tobacco: Never Assessed Comments Unknown Sex and Gender Information Value Date Recorded Sex Assigned at Not on file Legal Sex Female 1:36 PM RESOURCE DIRECTOR Gender Identity Not on file Sexual Orientation Not on file Last Filed Vital Signs Vital Sign Reading Time Taken Comments Blood Pressure 108/70 08/17/2017 10:23 AM RESOURCE DIRECTOR Pulse 56 08/17/2017 10:23 AM RESOURCE DIRECTOR Temperature 37.2 C (98.9 F) 08/17/2017 10:23 AM RESOURCE DIRECTOR Respiratory Rate - - Oxygen Saturation - - Inhaled Oxygen Concentration - - Weight 88.9 kg (196 lb) 08/17/2017 10:23 AM RESOURCE DIRECTOR Height 165.1 cm (5' 5) 08/17/2017 10:23 AM RESOURCE DIRECTOR Body Mass Index 32.62 08/17/2017 10:23 AM RESOURCE DIRECTOR Plan of Treatment Health Maintenance Due Date Last Done Comments OGLA (AGES 45-75) - COL ON CA SCREENING 1978 COLON MONITORING 1978 COLONOSCOPY - COLON CA SCREENING 1978 CT COLONOGRAPHY - COLON CA SCREENING 1978 Colorectal Cancer Screening 1978 FIT - COLON CA SCREENING 1978 FLEX SIG - COLON CA SCREENING 1978 LIPID TESTING 1978 MAMMOGRAM 1978 HIV SCREENING 1993 HEPATITIS C SCREENING 12/11/1996 DTAP/TDAP/TD VACCINES (1 - Tdap) 1997 HEPATITIS B VACCINE (1 of 3 - 19+ 3-dose series) 1997 Cervical Cancer Screening 12/17/1999 PAP SMEAR 12/17/1999 PAP with HPV 2008 DEPRESSION SCREENING 08/16/2024 COVID-19 VACCINE (1 - 2024-2 6 season) 2025 INFLUENZA VACCINE (#1) 2025 ZOSTER VACCINE (1 of 2) 2028 HIB VACCINE Aged Out No longer eligi ble based on patient's age to complete this topic HPV VACCINE Aged Out No longer eligi ble based on patient's age to complete this topic MENINGOCOCCAL (Group B) VACC INE SHARED DECISION-MAKING Aged Out No longer eligibl e based on patient's age to complete this topic MENINGOCOCCAL GROUPS A/C/Y/W VACCINE Aged Out No longer eligible b ased on patient's age to complete this topic PNEUMOCOCCAL VACCINE Aged Out No long er eligible based on patient's age to complete this topic Insurance [facility] [place] [id number] Care Teams Embedded Linux Engineer Relationship Specialty Start Date End Date Dea Schaffer MD [address] [place] [id number] PCP - General 04/14/22
--- OUTSIDE RECORDS SUMMARY | 2025-07-04 19:11 | XMS_ITS | Clinical Summary ---
Author Organization [facility] Address [address] [place] [address] Care Team Providers Care Geographic Analyst Name Role Phone Unavailable Primary Care Provider Unavailabl e Immunizations Immunization Administration Dates Next Due Covid-19, Mrna, Lnp-s, Pf, 30 Mcg/0.3 Ml Dose (P sirizer) 05/30/2021 Social History Tobacco Use Types Packs/Day Years Used Date Smoking Tobacco: Never Assessed Comments Unknown Sex and Gender Information Value Date Recorded Sex Assigned at Not on file Legal Sex Female 12:14 PM CDT Gender Identity Not on file Sexual Orientation Not on file Plan of Treatment Health Maintenance Due Date Last Done Comments Hepatitis C Virus (HCV) Screening 1978 TdaP Immunization 1978 Varicella Immunization (1 of 2 - 13+ 2-dose series) 12/17/1991 Hepatitis B Immunization (1 of 3 - 19+ 3-dose series) 1997 Pap Smear 12/17/1999 Cervical Cancer Screening (CCS) 2008 HPV/Cotest 2008 Cologuard 12/17/2023 Colonoscopy 12/17/2023 Colorectal Cancer Screening 12/17/2023 Immunochemical Fecal Occult Blood 12/17/2023 Influenza Immunization (#1) 2025 SARS-COV-2 Immunization ( season) 2025 05/30/2021, 10/04/2020, 09/06/2020 Respiratory Syncytial Virus (RSV) Immunization (Adult) (1 - 1-dose 75+ series) 2053 Human Papillomavirus (HPV) Immunization Aged Out No longer eligible b ased on patient's age to complete this topic Meningococcal Immunization (ACWY) Aged Out No longer eligible b ased on patient's age to complete this topic Pneumococcal Immunization Combined Aged Out No longer eligible b ased on patient's age to complete this topic Rotavirus Immunization Aged Out No lo nger eligible based on patient's age to complete this topic
== END 2025-07-04 13:06 | disposition home or self-care (01) ==
PROVIDERS: PCP Family Medicine; Visit Provider Family Medicine
DX: R93.1 Abnormal findings on diagnostic imaging of heart and coronary circulation (principal); R00.1 Bradycardia, unspecified; Z82.49 Family history of ischemic heart disease and other diseases of the circulatory system
CPT/HCPCS: 93005; 93306